=== PATIENT | female | born 1945 | race Caucasian/White ===

== ENCOUNTER 2024-09-12 15:00 | Outpatient (RCR) | payer MEDICARE, OTHER, SELFPAY ==
[2024-08-22 14:39] VITALS: BP 142/66; PULSE 74; RESP 18; TEMP 36.6; BMI 37.9
--- NOTE | 2024-08-22 17:25 | PCM.WC.HP ---
History of Present Illness Date of Service: 08/22/24 Chief Complaint: Right ischial sore History of Wound: 79 year old female presents today with concern of a sore on her right bottom. She states that the discomfort has come and gone since December 2023. She admits to sitting for long periods of time. She has significant back pain and states she is unable to lay flat. She sleeps sitting up on her couch with her legs extended in front of her. She walks with a walker. She has been placing nystatin ointment to this area. She saw her PCP several weeks ago who prescribed her nystatin cream for a yeast infection in her abdominal skin folds/under breasts and an antibiotic. She states that her right buttocks got better after the antibiotic. Today she denies fever, chills, nausea and vomiting. Progress of Wound: Right buttocks with a dry, thickened scab that is partially coming off. Luanne wound is excoriated. She has a thin wound opening in her bro cleft, from pressure/sitting. [facility] Medical History (Updated 08/24/24 @ 20:50 by Sushila Herrera VICE PRESIDENT OF BUSINESS DEVELOPMENT, VICE PRESIDENT OF BUSINESS DEVELOPMENT-C) Degenerative disc disease, lumbar GERD (gastroesophageal reflux disease) Chronic anticoagulation DVT (deep venous thrombosis) Hypercholesteremia HTN (hypertension), benign Hypothyroidism Home Medications ?Medication ?Instructions ?Recorded ?Last Taken ?Type atorvastatin 10 mg tablet 10 mg PO DAILY 08/22/24 08/22/24 History levothyroxine 112 mcg tablet 112 mcg PO DAILY 08/22/24 08/22/24 History (Synthroid) lisinopril 10 mg tablet 10 mg PO DAILY 08/22/24 Unknown History omeprazole 40 mg capsule,delayed 40 mg PO DAILY 08/22/24 Unknown History release warfarin 2 mg tablet 2 mg PO DAILY 08/22/24 08/22/24 History Allergy/AdvReac Type Severity Reaction Status Date / Time levofloxacin (From Levaquin) Allergy Unknown Hives Verified 08/22/24 15:14 Sulfa (Sulfonamide AdvReac Unknown Hives Verified 08/22/24 15:14 Antibiotics) (sulfa drugs) Social History (Reviewed 08/24/24 @ 20:46 by Sushila Herrera VICE PRESIDENT OF BUSINESS DEVELOPMENT, VICE PRESIDENT OF BUSINESS DEVELOPMENT-C) Smoking Status: Never smoker ROS Constitutional Constitutional: Denies chills or fever(s) Eyes Eyes: Reports none ENT HEENT: Reports none Cardiovascular Cardiovascular: Denies chest pain or dyspnea Respiratory/Chest Respiratory/Chest: Denies cough or dyspnea Gastrointestinal Gastrointestinal: Reports none Genitourinary Genitourinary: Reports urinary incontinence Musculoskeletal Musculoskeletal: Reports back pain, difficulty walking and joint pain Integumentary Integumentary: Reports skin ulcer and wounds Neurologic Neurologic: Reports abnormal gait Psychiatric Psychiatric: Reports none Endocrine Endocrinology: Reports as per HPI Hematologic/Lymphatic Hematologic/Lymphatic: Reports as per HPI Allergic/Immunologic Allergic/Immunologic: Reports none Vital Signs Vital Signs Vital Signs: 08/22/24 14:39 Temperature 97.8 F Temperature Source Temporal Pulse Rate 74 Respiratory Rate 18 Blood Pressure 142/66 H Blood Pressure Mean 91 Blood Pressure Source Monitor Weight Weight: 235 lb 1.381 oz Body Mass Index (BMI) 37.9 Physical Exam Const alert and oriented x3 General Appearance: cooperative HEENT normocephalic Head and Scalp: atraumatic Eyes General Eye: normal appearance of both eyes Resp normal respiratory effort and normal air movement Effort and Inspection: able to speak in complete sentences Cardio regular rate Back/Spine Thoracic Spine / Upper Back: ROM limited and kyphosis Lumbar Spine / Lower Back: ROM limited and pain with ROM Extremity normal capillary refill Extremity Narrative: Walks with a walker Skin Wound Narrative: Right buttocks with excoriation, redness, and small scab but mostly healed from pressure. She also has a small wound opening in her cleft from pressure, is a thin slit that is open but superficial. Neuro oriented x3 Psych thought process normal and cooperative Appearance: appropriate Debridement Note Debridement Note Wound debrided: buttock wound Laterality: Right Type of Debridement: Selective debridement Anesthesia Used: 5% Lidocaine Gel Depth: Down to and including healthy tissue and in the subcutaneous layer Percentage of wound debrided: 90 Instrument Used: Forceps and - (scissors) Tissue Removed: Removed thickened scab and non viable tissue Severity: Limited To Skin Breakdown Amount of bleeding with debridement: Mild Bleeding Controlled with: Pressure Patient tolerated procedure: Patient tolerated procedure well Post-Debridement Measurements and Additional Note: Post-Debridement Measurements/Treatment MIRACLE - Nurse 1 - General Ulcer Assessment Start: 08/22/24 14:19 Freq: Status: Active Protocol: KELSI Activity Type Activity Date Activity User E-sign Co-sign Detail Recorded Client Recorded Date Recorded By Document 08/22/24 14:39 DL [id number] 08/22/24 14:53 DL 08/22/24 14:39 WC - Today's Visit Information Type of service Initial Visit Arrival Mode Ambulatory, Walker Transfer Assistance None Patient Identification Verified (Name & Yes ) Patient Requires Transmission-Based No Precautions Height and Weight Height 5 ft 6 in Weight 235 lb 1.381 oz Weight in Pounds 235.1 lbs Weight Measurement Method Estimated by Patient Body Mass Index (BMI) 37.9 BMI Classification Obese BSA - Lorin 2.14 Vital Signs Temperature (97.8 F-99.1 F) 97.8 F Temperature Source Temporal Pulse Rate (60-100) 74 Pulse Location Monitor Respiratory Rate (12-18) 18 Respiratory rate source Observation Blood Pressure (90/60-120/80) 142/66 H Blood Pressure Mean 91 Source Monitor Pain Scale: 0-10 Numeric Is Patient Pain Free? Yes Communication Assessment Preferred language Slovak Able to Read Yes Able to Write No Communication Tools None Right Hearing Abillity Normal Left Hearing Abillity Normal Visual Assistive Devices Glasses Teaching Assessment Preferences Verbal,Written, Demonstration Barriers to Learning None Readiness To Learn Good Willingness to Engage in Self Management Med Activies Readiness to Engage in Self Management Med Activities Anxiety Level Calm Cooperation Cooperative Perception Coherent Interest in Health Problem Asks Questions Education Importance Acknowledges Need Does Patient Smoke tobacco or other Yes substances Smoking Status Never smoker Is Patient Diabetic No Functional Assessment Recent Decline in Ability to Perform Denies Any Declines Culture/Temple/Board Certified Family Physician Cultural/Temple Needs that may affect No Treatment Plan Would you allow our [facility] director to No meet you for the purpose of spiritual/ emotional support? Board Certified Family Physician to contact place of sikh No Teaching: Wound Center *Wound/Skin Impairment -Person Taught Patient Dressing Your Wound -Person Taught Patient *Welcome to the Wound Center -Person Taught Patient WC - Nurse 1 - General Ulcer Measurement Start: 08/22/24 14:19 Freq: Status: Active Protocol: Activity Type Activity Date Activity User E-sign Co-sign Detail Recorded Client Recorded Date Recorded By Document 08/22/24 14:39 DL [id number] 08/22/24 14:53 DL 08/22/24 14:39 Wound Center Nurse 1 #2- SACRUM -Combined with other wound No -Current Size (cm) - Length 0.8 -Current Size (cm) - Width 0.2 -Current Size (cm) - Depth 0.1 -Total Square Cm 0.16 -Tunneling No -Undermining/Tunneling No -Circular Undermining No -Exudate Amt Medium -Exudate Type Serosanguineous -Wound Margin Distinct, Outline Attached -Granulation Amt Large (67-100%) -Granulation Quality Red -Slough/Fibrin No -Necrosis Amt None Present (0 %) -Texture (Luanne-wound Skin Appearance) Assessed -Moisture (Luanne-wound Skin Appearance) Assessed -Color (Luanne-wound Skin Appearance) Assessed, Erythema -Temperature (Luanne-wound Skin No Abnormality Appearance) (Pt Warm) -Tenderness on Palpation (Luanne-wound No Skin Appearance) -Ulcer Cleansing Rinsed/ Irrigated with Saline -Foul Odor after Cleansing No -Anesthetic Used 5% Lidocaine Gel -Wound Comment(s) REFUSED PHOTO #1- R BUTTOCK -Combined with other wound No -Current Size (cm) - Length 0.1 -Current Size (cm) - Width 0.1 -Current Size (cm) - Depth 0.1 -Total Square Cm 0.01 -Exudate Amt None Present -Texture (Luanne-wound Skin Appearance) Assessed, Scarring -Moisture (Luanne-wound Skin Appearance) Assessed,Dry/ Scaly -Color (Luanne-wound Skin Appearance) Assessed, Erythema -Temperature (Luanne-wound Skin No Abnormality Appearance) (Pt Warm) -Tenderness on Palpation (Luanne-wound No Skin Appearance) -Ulcer Cleansing Rinsed/ Irrigated with Saline -Foul Odor after Cleansing No -Wound Comment(s) REFUSES PHOTO WC - Nurse 2 - General Ulcer CM Notes Start: 08/22/24 14:19 Freq: Status: Active Protocol: Activity Type Activity Date Activity User E-sign Co-sign Detail Recorded Client Recorded Date Recorded By Document 08/22/24 15:09 [id number] 08/22/24 15:25 08/22/24 15:09 Wound Center Nurse 2 #2- SACRUM -Time 15:10 -Correct Patient Yes -Correct Side, Site, Position Yes -Correct Procedure No -Procedure Performed No -Post Debridement (cm) - Length 1.0 -Post Debridement (cm) - Width 0.2 -Post Debridement (cm) - Depth 0.1 -Total Square (Post) (cm) 0.20 -Tunneling No -Undermining/Tunneling No -Circular Undermining No -Wound/Ulcer Outcome Not Healed -Ulcer Cleansing Not Cleansed -Foul Odor after Cleansing No -Bioengineered Tissue No -Bleeding Controlled with NA #1- R BUTTOCK -Time 15:10 -Correct Patient Yes -Correct Side, Site, Position Yes -Correct Procedure Yes -Procedure Performed Yes -Type of Procedure Debridement -Clinical Debridement Epidermis / Dermis -Tissue Removed Epidermis -Post Debridement (cm) - Length 0.2 -Post Debridement (cm) - Width 0.2 -Post Debridement (cm) - Depth 0.1 -Total Square (Post) (cm) 0.04 -Area of Debridement (cm) - Length 0.2 -Area of Debridement (cm) - Width 0.2 -Total Square (Area) (cm) 0.04 -Tunneling No -Undermining/Tunneling No -Circular Undermining No -Wound/Ulcer Outcome Not Healed -Ulcer Cleansing Not Cleansed -Foul Odor after Cleansing No -Bioengineered Tissue No -Bleeding Controlled with NA -Treatment Response Procedure Tolerated Well -Debridement - Open, 1st 20sq cm Yes Pain Scale: 0-10 Numeric Is Patient Pain Free? Yes - Nurse 3 - General Ulcer D/C NN Start: 08/22/24 14:19 Freq: Status: Active Protocol: Activity Type Activity Date Activity User E-sign Co-sign Detail Recorded Client Recorded Date Recorded By Document 08/22/24 15:38 [facility] [id number] 08/22/24 15:42 [facility] 08/22/24 15:38 Wound Care Center Nurse 3 #2- SACRUM -Wound Comment(s) CALMOSEPTINE #1- R BUTTOCK -Wound Comment(s) CALMOSEPTINE Treatment Response Procedure Tolerated Well Pain Scale: 0-10 Numeric Is Patient Pain Free? Yes - Visit Discharge Discharge Condition Stable Ambulatory Status Ambulatory, Walker Accompanied by IN LOBBY Charges/Coding Visit Charges Office Visits / Consults: 66229 OV L3 New 30min (25 modifier) Wound Center CF Procedures [id number]: [id number] RMVL DEVITAL TIS 20 CM/< Multi Select Codes Wound Center CF Procedures [id number]-98XXX: [id number] RMVL DEVITAL TIS 20 CM/< Assessment/Plan Assessment/Plan (1) Pressure injury of skin of cleft: CODE(S): L89.40 - Pressure ulcer of contiguous site of back, buttock and hip, unspecified stage (2) Abrasion of right buttock: CODE(S): S30.810A - Abrasion of lower back and pelvis, initial encounter (3) Chronic anticoagulation: CODE(S): Z79.01 - 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 After the thickened scabbing was removed from her right buttock pressure area, it has a fragile layer of epithelial tissue. The small wound opening in her bro cleft is from pressure. Wound care - Calmoseptine/barrier cream daily and as needed. Encouraged to wash both of these area daily with soap and water, pat dry and then apply barrier cream. Discussed how to off load. She is not able to lay down due to her back. She sleeps sitting up on her couch with her legs extended out straight in front of her. Encouraged her to get up and walk more frequently (ideally at least every hour), and to make sure she is shifting her weight frequently while awake (every 15-30 minutes). Discussed getting an off loading cushion. She can try an egg crate cushion, but with her weight and decreased mobility, she would benefit from a cushion such as a ROHO cushion. Follow up one week. Greater than 35 minutes spent with patient, assessing, educating, plan of care, documenting.
[2024-08-29 15:28] VITALS: BP 126/70; PULSE 86; RESP 16; BMI 37.9
--- NOTE | 2024-08-29 16:15 | PCM.WC.PN ---
History of Present Illness Date of Service: 08/29/24 Chief Complaint: Right ischial sore History of Wound: 79 year old female presents today with concern of a sore on her right bottom. She states that the discomfort has come and gone since December 2023. She admits to sitting for long periods of time. She has significant back pain and states she is unable to lay flat. She sleeps sitting up on her couch with her legs extended in front of her. She walks with a walker. She has been placing nystatin ointment to this area. She saw her PCP several weeks ago who prescribed her nystatin cream for a yeast infection in her abdominal skin folds/under breasts and an antibiotic. She states that her right buttocks got better after the antibiotic. Today she denies fever, chills, nausea and vomiting. Progress of Wound: Right buttocks is healed. Luanne wound is no longer excoriated. The thin wound opening in her cleft, is healed but there is some redness in this area, that clinically looks like yeast. Patient admits that she has not been off loading as suggested and has not looked into getting a cushion of any sort to help with decreasing pressure. Objective Data Objective Data Vital Signs: Vital Signs Temp Pulse Resp BP O2 Del Method 97.8 F 86 16 126/70 H Room Air 08/22/24 14:39 08/29/24 15:28 08/29/24 15:28 08/29/24 15:28 08/29/24 15:28 Oxygen Delivery Method Room Air Weight: 235 lb 1.381 oz Body Mass Index (BMI) 37.9 Charges/Coding Visit Charges Office Visits / Consults: 38289 OV L3 Est 20min Physical Exam Const alert and oriented x3 General Appearance: cooperative HEENT normocephalic Head and Scalp: atraumatic Eyes General Eye: normal appearance of both eyes Resp normal respiratory effort and normal air movement Effort and Inspection: able to speak in complete sentences Cardio regular rate and regular rhythm Back/Spine Thoracic Spine / Upper Back: ROM limited and kyphosis Lumbar Spine / Lower Back: ROM limited and pain with ROM Extremity normal capillary refill Extremity Narrative: Walks with a walker Skin Wound Narrative: Right buttocks is healed. Luanne wound is no longer excoriated. The thin wound opening in her bro cleft, is healed but there is some redness in this area, that clinically looks like yeast. Neuro oriented x3 Psych thought process normal and cooperative Appearance: appropriate Debridement Note Debridement Note No debridement was completed: No debridement was completed today Post-Debridement Measurements and Additional Note: Post-Debridement Measurements/Treatment - Nurse 1 - General Ulcer Assessment Start: 08/22/24 14:19 Freq: Status: Active Protocol: MIRACLE.LOWWINNIET Activity Type Activity Date Activity User E-sign Co-sign Detail Recorded Client Recorded Date Recorded By Document 08/22/24 14:39 DL [id number] 08/22/24 14:53 DL Document 08/29/24 15:28 KW [id number] 08/29/24 15:31 KW 08/22/24 08/29/24 14:39 15:28 WC - Today's Visit Information Type of service Initial Visit Follow-up Visit (Physician/MACHINE SIGN WRITER ) Arrival Mode Ambulatory, Ambulatory, Walker Walker Transfer Assistance None Patient Identification Verified (Name & Yes Yes ) Patient Requires Transmission-Based No Precautions Height and Weight Height 5 ft 6 in Weight 235 lb 1.381 oz Weight in Pounds 235.1 lbs Weight Measurement Method Estimated by Patient Body Mass Index (BMI) 37.9 37.9 BMI Classification Obese Obese BSA - Lorin 2.14 Vital Signs Temperature (97.8 F-99.1 F) 97.8 F Temperature Source Temporal Pulse Rate (60-100) 74 86 Pulse Location Monitor Monitor Respiratory Rate (12-18) 18 16 Respiratory rate source Observation Observation Oxygen Delivery Method Room Air Blood Pressure (90/60-120/80) 142/66 H 126/70 H Blood Pressure Mean (mm Hg) 91 88 Source Monitor Monitor Position Sitting Blood Pressure Location Left Arm Pain Scale: 0-10 Numeric Is Patient Pain Free? Yes Yes Communication Assessment Preferred language Armenian Able to Read Yes Able to Write No Communication Tools None Right Hearing Abillity Normal Left Hearing Abillity Normal Visual Assistive Devices Glasses Teaching Assessment Preferences Verbal,Written, Demonstration Barriers to Learning None Readiness To Learn Good Willingness to Engage in Self Management Med Activies Readiness to Engage in Self Management Med Activities Anxiety Level Calm Cooperation Cooperative Perception Coherent Interest in Health Problem Asks Questions Education Importance Acknowledges Need Does Patient Smoke tobacco or other Yes substances Smoking Status Never smoker Is Patient Diabetic No Functional Assessment Recent Decline in Ability to Perform Denies Any Declines Culture/Protestant/Salesperson Flowers Cultural/Protestant Needs that may affect No Treatment Plan Would you allow our hospital drafter topographical to No meet you for the purpose of spiritual/ emotional support? Salesperson Flowers to contact place of latter day No Teaching: Wound Center *Wound/Skin Impairment -Person Taught Patient Dressing Your Wound -Person Taught Patient *Welcome to the Wound Center -Person Taught Patient WC - Nurse 1 - General Ulcer Measurement Start: 08/22/24 14:19 Freq: Status: Active Protocol: Activity Type Activity Date Activity User E-sign Co-sign Detail Recorded Client Recorded Date Recorded By Document 08/22/24 14:39 DL [id number] 08/22/24 14:53 DL Document 08/29/24 15:28 KW [id number] 08/29/24 15:31 KW 08/22/24 08/29/24 14:39 15:28 Wound Center Nurse 1 #2- SACRUM -Combined with other wound No -Current Size (cm) - Length 0.8 0.1 -Current Size (cm) - Width 0.2 0.9 -Current Size (cm) - Depth 0.1 0.1 -Total Square Cm 0.16 0.09 -Tunneling No -Undermining/Tunneling No -Circular Undermining No -Exudate Amt Medium Small -Exudate Type Serosanguineous Serosanguineous -Wound Margin Distinct, Distinct, Outline Outline Attached Attached -Granulation Amt Large (67-100%) Large (67-100%) -Granulation Quality Red [place] -Slough/Fibrin No -Necrosis Amt None Present (0 %) -Texture (Luanne-wound Skin Appearance) Assessed Assessed -Moisture (Luanne-wound Skin Appearance) Assessed Assessed -Color (Luanne-wound Skin Appearance) Assessed, Assessed Erythema -Temperature (Luanne-wound Skin No Abnormality No Abnormality Appearance) (Pt Warm) (Pt Warm) -Tenderness on Palpation (Luanne-wound No No Skin Appearance) -Ulcer Cleansing Rinsed/ Rinsed/ Irrigated with Irrigated with Saline Saline -Foul Odor after Cleansing No No -Anesthetic Used 5% Lidocaine 5% Lidocaine Gel Gel -Wound Comment(s) REFUSED PHOTO #1- R BUTTOCK -Combined with other wound No -Current Size (cm) - Length 0.1 0 -Current Size (cm) - Width 0.1 0 -Current Size (cm) - Depth 0.1 0 -Total Square Cm 0.01 0 -Exudate Amt None Present None Present -Texture (Luanne-wound Skin Appearance) Assessed, Assessed Scarring -Moisture (Luanne-wound Skin Appearance) Assessed,Dry/ Assessed Scaly -Color (Luanne-wound Skin Appearance) Assessed, Assessed Erythema -Temperature (Luanne-wound Skin No Abnormality No Abnormality Appearance) (Pt Warm) (Pt Warm) -Tenderness on Palpation (Luanne-wound No No Skin Appearance) -Ulcer Cleansing Rinsed/ Rinsed/ Irrigated with Irrigated with Saline Saline -Foul Odor after Cleansing No No -Wound Comment(s) REFUSES PHOTO WC - Nurse 2 - General Ulcer CM Notes Start: 08/22/24 14:19 Freq: Status: Active Protocol: Activity Type Activity Date Activity User E-sign Co-sign Detail Recorded Client Recorded Date Recorded By Document 08/22/24 15:09 [id number] 08/22/24 15:25 Document 08/29/24 15:35 [id number] 08/29/24 15:38 GM 08/22/24 08/29/24 15:09 15:35 Wound Center Nurse 2 #2- SACRUM -Time 15:10 15:36 -Correct Patient Yes Yes -Correct Side, Site, Position Yes Yes -Correct Procedure No No -Procedure Performed No No -Post Debridement (cm) - Length 1.0 -Post Debridement (cm) - Width 0.2 -Post Debridement (cm) - Depth 0.1 -Total Square (Post) (cm) 0.20 -Tunneling No No -Undermining/Tunneling No No -Circular Undermining No No -Wound/Ulcer Outcome Not Healed Healed- Epithelialized -Ulcer Cleansing Not Cleansed -Foul Odor after Cleansing No No -Bioengineered Tissue No No -Bleeding Controlled with NA NA #1- R BUTTOCK -Time 15:10 15:36 -Correct Patient Yes Yes -Correct Side, Site, Position Yes Yes -Correct Procedure Yes No -Procedure Performed Yes No -Type of Procedure Debridement -Clinical Debridement Epidermis / Dermis -Tissue Removed Epidermis -Post Debridement (cm) - Length 0.2 -Post Debridement (cm) - Width 0.2 -Post Debridement (cm) - Depth 0.1 -Total Square (Post) (cm) 0.04 -Area of Debridement (cm) - Length 0.2 -Area of Debridement (cm) - Width 0.2 -Total Square (Area) (cm) 0.04 -Tunneling No -Undermining/Tunneling No -Circular Undermining No -Wound/Ulcer Outcome Not Healed Healed- Epithelialized -Ulcer Cleansing Not Cleansed -Foul Odor after Cleansing No -Bioengineered Tissue No -Bleeding Controlled with NA -Treatment Response Procedure Tolerated Well -Debridement - Open, 1st 20sq cm Yes Pain Scale: 0-10 Numeric Is Patient Pain Free? Yes Yes - Nurse 3 - General Ulcer D/C NN Start: 08/22/24 14:19 Freq: Status: Active Protocol: Activity Type Activity Date Activity User E-sign Co-sign Detail Recorded Client Recorded Date Recorded By Document 08/22/24 15:38 [facility] [id number] 08/22/24 15:42 [facility] Document 08/29/24 15:38 [id number] 08/29/24 15:39 08/22/24 08/29/24 15:38 15:38 Wound Care Center Nurse 3 #2- SACRUM -Ulcer Cleansing Not Cleansed -Foul Odor after Cleansing No -Wound Comment(s) CALMOSEPTINE #1- R BUTTOCK -Wound Comment(s) CALMOSEPTINE Treatment Response Procedure Tolerated Well Pain Scale: 0-10 Numeric Is Patient Pain Free? Yes Yes WC - Visit Discharge Discharge Condition Stable Stable Ambulatory Status Ambulatory, Ambulatory, Walker Walker Transportation Private Auto Accompanied by IN LOBBY Assessment/Plan Assessment/Plan (1) Pressure injury of skin of cleft: CODE(S): L89.40 - Pressure ulcer of contiguous site of back, buttock and hip, unspecified stage (2) Abrasion of right buttock: CODE(S): S30.810A - Abrasion of lower back and pelvis, initial encounter (3) Chronic anticoagulation: CODE(S): Z79.01 - supervisor intermediates (current) use of anticoagulants PLAN: Plan Patient evaluated at the wound healing center today. Wound care - Continue Calmoseptine/barrier cream daily and as needed to right buttocks. To cleft apply nystatin cream twice daily. Encouraged to wash both of these area daily with soap and water, pat dry and then apply barrier cream. Reinforced off loading. She is not able to lay down due to her back. She sleeps sitting up on her couch with her legs extended out straight in front of her. Encouraged her to get up and walk more frequently (ideally at least every hour), and to make sure she is shifting her weight frequently while awake (every 15-30 minutes). Discussed getting an off loading cushion. She can try an egg crate cushion, but with her weight and decreased mobility, she would benefit from a cushion such as a ROHO cushion. Follow up 2 weeks.
[2024-09-12 15:11] VITALS: BP 121/69; PULSE 75; RESP 18; TEMP 36.5; BMI 37.9
--- NOTE | 2024-09-12 16:58 | PN.PCM_ITS ---
History of Present Illness Date of Service: 09/12/24 Chief Complaint: Right ischial sore History of Wound: 79 year old female presents today with concern of a sore on her right bottom. She states that the discomfort has come and gone since December 2023. She admits to sitting for long periods of time. She has significant back pain and states she is unable to lay flat. She sleeps sitting up on her couch with her legs extended in front of her. She walks with a walker. She has been placing nystatin ointment to this area. She saw her PCP several weeks ago who prescribed her nystatin cream for a yeast infection in her abdominal skin folds/under breasts and an antibiotic. She states that her right buttocks got better after the antibiotic. Today she denies fever, chills, nausea and vomiting. Progress of Wound: Right buttocks has a small scabbing. Luanne wound is clear. The right side is shearing machine tender. Left buttocks is completely healed. The thin wound opening in her bro cleft broke open today when spreading buttocks apart to get a better look at her skin, it is a small sliver. Erythema is resolved. Patient admits that she has not been off loading as recommended. She has looked into getting a cushion but had some questions about what to look for in a cushion. She states that she has only been placing the barrier cream once per day. Objective Data Objective Data Vital Signs: Vital Signs Temp Pulse Resp BP O2 Del Method 97.7 F L 75 18 121/69 H Room Air 09/12/24 15:11 09/12/24 15:11 09/12/24 15:11 09/12/24 15:11 09/12/24 15:11 Oxygen Delivery Method Room Air Weight: 235 lb 1.381 oz Body Mass Index (BMI) 37.9 Charges/Coding Visit Charges Office Visits / Consults: [id number] OV L3 Est 20min Physical Exam Const alert and oriented x3 General Appearance: cooperative HEENT normocephalic Head and Scalp: atraumatic Eyes General Eye: normal appearance of both eyes Resp normal respiratory effort and normal air movement Effort and Inspection: able to speak in complete sentences Cardio regular rate and regular rhythm Back/Spine Thoracic Spine / Upper Back: ROM limited and kyphosis Lumbar Spine / Lower Back: ROM limited and pain with ROM Extremity normal capillary refill Extremity Narrative: Walks with a walker Skin Skin Narrative: Right buttocks has a small, dry scab. It is very adhered. Luanne wound is clear. The right side is shearing machine tender. Left buttocks is completely healed. The thin wound opening in her bro cleft was healed but broke open today when spreading buttocks apart to get a better look at her skin, it is a small, superficial sliver. Erythema is resolved. Neuro oriented x3 Psych thought process normal and cooperative Appearance: appropriate Debridement Note Debridement Note No debridement was completed: No debridement was completed today Post-Debridement Measurements and Additional Note: Post-Debridement Measurements/Treatment - Nurse 1 - General Ulcer Assessment Start: 08/22/24 14:19 Freq: Status: Active Protocol: [email or web address] Activity Type Activity Date Activity User E-sign Co-sign Detail Recorded Client Recorded Date Recorded By Document 08/22/24 14:39 DL [id number] 08/22/24 14:53 DL Document 08/29/24 15:28 KW [id number] 08/29/24 15:31 KW Document 09/12/24 15:11 KW [id number] 09/12/24 15:27 KW 08/22/24 08/29/24 09/12/24 14:39 15:28 15:11 - Today's Visit Information Type of service Initial Visit Follow-up Visit Follow-up Visit (Physician/TAP AND DIE MAKER TECHNICIAN (Physician/TAP AND DIE MAKER TECHNICIAN ) ) Arrival Mode Ambulatory, Ambulatory, Wheelchair Walker Walker Transfer Assistance None Patient Identification Verified (Name & Yes Yes Yes ) Patient Requires Transmission-Based No Precautions Height and Weight Height 5 ft 6 in Weight 235 lb 1.381 oz Weight in Pounds 235.1 lbs Weight Measurement Method Estimated by Patient Body Mass Index (BMI) 37.9 37.9 37.9 BMI Classification Obese Obese Obese BSA - Lorin 2.14 Vital Signs Temperature (97.8 F-99.1 F) 97.8 F 97.7 F L Temperature Source Temporal Temporal Pulse Rate (60-100) 74 86 75 Pulse Location Monitor Monitor Monitor Respiratory Rate (12-18) 18 16 18 Respiratory rate source Observation Observation Observation Oxygen Delivery Method Room Air Room Air Blood Pressure (90/60-120/80) 142/66 H 126/70 H 121/69 H Blood Pressure Mean (mm Hg) 91 88 86 Source Monitor Monitor Monitor Position Sitting Sitting Blood Pressure Location Left Arm Left Forearm History Since Last Visit- (Skip if this is Patient's initial visit) Have you changed medications since your No last visit? Any new allergies or adverse reactions No Had a fall/change in ADL's that may No increase risk of falls Signs or symptoms of abuse and/or No neglect since last visit Have you been in the hospital since your No last visit? Has dressing in place as prescribed Yes Has compression in place as prescribed N/A Has offloadiing in place as prescribed N/A Experienced any changes in pain level or No management Left Footwear Regular Shoe Right Footwear Regular Shoe Pain Scale: 0-10 Numeric Is Patient Pain Free? Yes Yes Yes Communication Assessment Preferred language Khmer Able to Read Yes Able to Write No Communication Tools None Right Hearing Abillity Normal Left Hearing Abillity Normal Visual Assistive Devices Glasses Teaching Assessment Preferences Verbal,Written, Demonstration Barriers to Learning None Readiness To Learn Good Willingness to Engage in Self Management Med Activies Readiness to Engage in Self Management Med Activities Anxiety Level Calm Cooperation Cooperative Perception Coherent Interest in Health Problem Asks Questions Education Importance Acknowledges Need Does Patient Smoke tobacco or other Yes substances Smoking Status Never smoker Is Patient Diabetic No Functional Assessment Recent Decline in Ability to Perform Denies Any Declines 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 Skylights Assembler to contact place of religion No Teaching: Wound Center *Wound/Skin Impairment -Person Taught Patient Dressing Your Wound -Person Taught Patient *Welcome to the Wound Center -Person Taught Patient WC - Nurse 1 - General Ulcer Measurement Start: 08/22/24 14:19 Freq: Status: Active Protocol: Activity Type Activity Date Activity User E-sign Co-sign Detail Recorded Client Recorded Date Recorded By Document 08/22/24 14:39 DL [id number] 08/22/24 14:53 DL Document 08/29/24 15:28 KW [id number] 08/29/24 15:31 KW Document 09/12/24 15:11 KW [id number] 09/12/24 15:27 KW 08/22/24 08/29/24 09/12/24 14:39 15:28 15:11 Wound Center Nurse 1 #2- SACRUM -Combined with other wound No -Current Size (cm) - Length 0.8 0.1 -Current Size (cm) - Width 0.2 0.9 -Current Size (cm) - Depth 0.1 0.1 -Total Square Cm 0.16 0.09 -Tunneling No -Undermining/Tunneling No -Circular Undermining No -Exudate Amt Medium Small -Exudate Type Serosanguineous Serosanguineous -Wound Margin Distinct, Distinct, Outline Outline Attached Attached -Granulation Amt Large (67-100%) Large (67-100%) -Granulation Quality [place] -Slough/Fibrin No -Necrosis Amt None Present (0 %) -Texture (Luanne-wound Skin Appearance) Assessed Assessed -Moisture (Luanne-wound Skin Appearance) Assessed Assessed -Color (Luanne-wound Skin Appearance) Assessed, Assessed Erythema -Temperature (Luanne-wound Skin No Abnormality No Abnormality Appearance) (Pt Warm) (Pt Warm) -Tenderness on Palpation (Luanne-wound No No Skin Appearance) -Ulcer Cleansing Rinsed/ Rinsed/ Irrigated with Irrigated with Saline Saline -Foul Odor after Cleansing No No -Anesthetic Used 5% Lidocaine 5% Lidocaine Gel Gel -Wound Comment(s) REFUSED PHOTO #1- R BUTTOCK -Combined with other wound No -Current Size (cm) - Length 0.1 0 0.3 -Current Size (cm) - Width 0.1 0 0.5 -Current Size (cm) - Depth 0.1 0 0.1 -Total Square Cm 0.01 0 0.15 -Exudate Amt None Present None Present None Present -Texture (Luanne-wound Skin Appearance) Assessed, Assessed Scarring -Moisture (Luanne-wound Skin Appearance) Assessed,Dry/ Assessed Scaly -Color (Luanne-wound Skin Appearance) Assessed, Assessed Erythema -Temperature (Luanne-wound Skin No Abnormality No Abnormality Appearance) (Pt Warm) (Pt Warm) -Tenderness on Palpation (Luanne-wound No No Skin Appearance) -Ulcer Cleansing Rinsed/ Rinsed/ Irrigated with Irrigated with Saline Saline -Foul Odor after Cleansing No No -Anesthetic Used 5% Lidocaine Gel -Wound Comment(s) REFUSES PHOTO SCABBED, REDDENED, PAINFUL WC - Nurse 2 - General Ulcer CM Notes Start: 08/22/24 14:19 Freq: Status: Active Protocol: Activity Type Activity Date Activity User E-sign Co-sign Detail Recorded Client Recorded Date Recorded By Document 08/22/24 15:09 GM [id number] 08/22/24 15:25 GM Document 08/29/24 15:35 [id number] 08/29/24 15:38 Document 09/12/24 15:48 [id number] 09/12/24 16:02 08/22/24 08/29/24 09/12/24 15:09 15:35 15:48 Wound Center Nurse 2 #2- SACRUM -Time 15:10 15:36 -Correct Patient Yes Yes -Correct Side, Site, Position Yes Yes -Correct Procedure No No -Procedure Performed No No -Post Debridement (cm) - Length 1.0 -Post Debridement (cm) - Width 0.2 -Post Debridement (cm) - Depth 0.1 -Total Square (Post) (cm) 0.20 -Tunneling No No -Undermining/Tunneling No No -Circular Undermining No No -Wound/Ulcer Outcome Not Healed Healed- Epithelialized -Ulcer Cleansing Not Cleansed -Foul Odor after Cleansing No No -Bioengineered Tissue No No -Bleeding Controlled with NA NA #1- R BUTTOCK -Time 15:10 15:36 15:59 -Correct Patient Yes Yes Yes -Correct Side, Site, Position Yes Yes Yes -Correct Procedure Yes No No -Procedure Performed Yes No No -Type of Procedure Debridement -Clinical Debridement Epidermis / Dermis -Tissue Removed Epidermis -Post Debridement (cm) - Length 0.2 0.2 -Post Debridement (cm) - Width 0.2 0.5 -Post Debridement (cm) - Depth 0.1 0.1 -Total Square (Post) (cm) 0.04 0.10 -Area of Debridement (cm) - Length 0.2 -Area of Debridement (cm) - Width 0.2 -Total Square (Area) (cm) 0.04 -Tunneling No No -Undermining/Tunneling No No -Circular Undermining No No -Wound/Ulcer Outcome Not Healed Healed- Not Healed Epithelialized -Ulcer Cleansing Not Cleansed Not Cleansed -Foul Odor after Cleansing No No -Bioengineered Tissue No -Bleeding Controlled with NA NA -Treatment Response Procedure Tolerated Well -Debridement - Open, 1st 20sq cm Yes Pain Scale: 0-10 Numeric Is Patient Pain Free? Yes Yes Yes WC - Nurse 3 - General Ulcer D/C NN Start: 08/22/24 14:19 Freq: Status: Active Protocol: Activity Type Activity Date Activity User E-sign Co-sign Detail Recorded Client Recorded Date Recorded By Document 08/22/24 15:38 [facility] [id number] 08/22/24 15:42 [facility] Document 08/29/24 15:38 [id number] 08/29/24 15:39 Document 09/12/24 16:02 [id number] 09/12/24 16:03 08/22/24 08/29/24 09/12/24 15:38 15:38 16:02 Wound Care Center Nurse 3 #2- SACRUM -Ulcer Cleansing Not Cleansed -Foul Odor after Cleansing No -Wound Comment(s) CALMOSEPTINE #1- R BUTTOCK -Ulcer Cleansing Not Cleansed -Foul Odor after Cleansing No -Wound Comment(s) CALMOSEPTINE CALMOSEPTINE APPLIED Treatment Response Procedure Tolerated Well Pain Scale: 0-10 Numeric Is Patient Pain Free? Yes Yes Yes WC - Visit Discharge Discharge Condition Stable Stable Stable Ambulatory Status Ambulatory, Ambulatory, Ambulatory Walker Walker Transportation Private Auto Private Auto Accompanied by [place] LOBBY Assessment/Plan Assessment/Plan (1) Pressure injury of skin of cleft: CODE(S): L89.40 - Pressure ulcer of contiguous site of back, buttock and hip, unspecified stage (2) Abrasion of right buttock: CODE(S): S30.810A - Abrasion of lower back and pelvis, initial encounter (3) Chronic anticoagulation: CODE(S): Z79.01 - ferry terminal agent (current) use of anticoagulants PLAN: Plan Patient evaluated at the wound healing center today. Wound care - Continue Calmoseptine/barrier cream daily and as needed to right and left buttocks and the cleft. Encouraged to wash both of these area daily with soap and water, pat dry and then apply barrier cream. May apply barrier cream as needed, also. She may stop using the nystatin cream, she no longer has any erythema/yeast rash. Reinforced off loading. She is not able to lay down due to her back. She sleeps sitting up on her couch with her legs extended out straight in front of her. Encouraged her to get up and walk more frequently (ideally at least every hour), and to make sure she is shifting her weight frequently while awake (every 15-30 minutes). Discussed getting an off loading cushion, she has researched them and we discussed the options that she researched. At this point, any off loading cushion is better than what she currently has. Follow up as needed.
== END 2024-09-14 23:59 | disposition home or self-care (01) ==
LOC: WC 15:00
PROVIDERS: PCP Internal Medicine; Referring Provider Internal Medicine; Visit Provider Nurse Practitioner Family
DX: L89.40 Pressure ulcer of contiguous site of back, buttock and hip, unspecified stage (principal); S30.810A Abrasion of lower back and pelvis, initial encounter; M54.9 Dorsalgia, unspecified; K21.9 Gastro-esophageal reflux disease without esophagitis; Z79.01 Long term (current) use of anticoagulants; I10 Essential (primary) hypertension
CPT/HCPCS: 97597; 99203; 99213; G0463